=== PATIENT | female | born 1955 | race Caucasian/White ===

== ENCOUNTER 2021-12-03 21:49 | Observation (INO) ==
[2021-12-03] MEDS ORDERED: IOPAMIDOL 100 ML BOTTLE IV ONE (21:50)
--- NOTE | 2021-12-03 21:58 | Emergency Department Note ---
Abdominal Pain HPI General Chief Complaint: Abdominal Pain Stated Complaint: Abdominal pain Time Seen by Provider: 12/03/21 21:57 Source: patient Mode of arrival: ambulatory Limitations: no limitations History of Present Illness HPI Narrative: Narrative: 66-year-old female was in good health until 11 AM day of presentation when she developed a gradual onset of pain in her epigastric area. With time she developed nausea to go with that followed by vomiting. Over time,pain migrated to the right lower quadrant and she presented to the emergency department around 9:45 PM for further care. At the time presentation patient was having pain that she rated as a 9 on a 0-to-10 scale. Stated was constant. Worse with vomiting. Was primarily located in the right lower quadrant without radiation to the back. Had associated vomiting. More of a dull pain and then a sharp pain. Patient excepted antiemetic medication but refused antinausea medicine. Patient states she has had extensive vomiting after opioids in the past and is reluctant to have them unless she truly needs them. Patient states she is a type II diabetic who takes metformin twice a day and Trulicity once a week. States she is an asthmatic using multiple inhalers. Denies heart disease. States she recently had a colonoscopy that was esse ntially unremarkable. Past surgical history . Last food intake 1 PM. Last liquid; patient took a sip of water at 2230. Related Data Home Medications Medication Instructions Recorded Confirmed multivitamin 1 tab PO QDAY 10/08/19 12/04/21 omeprazole 20 mg capsule,delayed 20 mg PO QDAY cap 09/04/21 12/04/21 release Previous Rx's Medication Instructions Recorded blood sugar diagnostic (Accu-Chek #100 ea 11/20/20 Fabi Plus test strp) blood-glucose meter (Accu-Chek #1 ea 11/20/20 Fabi Plus Meter) lancets (Accu-Chek Multiclix #200 ea 11/20/20 Lancet) solifenacin 10 mg tablet (Vesicare) 10 mg PO QDAY #90 tab 04/06/21 metformin 500 mg tablet 500 mg PO BID 90 Days #180 tab 04/09/21 ropinirole 0.5 mg tablet 0.5 mg PO QHS #90 tab 04/09/21 albuterol sulfate 90 mcg/actuation 2 puff INHALATION Q6H #20.1 g 05/04/21 aerosol inhaler (Ventolin HFA) rosuvastatin 20 mg tablet 20 mg PO QDAY #30 tab 06/03/21 dulaglutide 0.75 mg/0.5 mL 0.75 mg (0.5 mL) SUBCUT QWEEK #2 ml 09/04/21 subcutaneous pen injector (Trulicity) fluticasone 500 mcg-salmeterol 50 1 inh INHALATION Q12H #60 each 09/04/21 mcg/dose blistr powdr for inhalation (Wixela Inhub) mirtazapine 15 mg tablet 15 mg PO QHS #90 tab 09/11/21 Allergies Allergy/AdvReac Type Severity Reaction Status Date / Time cat dander Allergy Unknown Sneezing Verified 12/03/21 21:51 House Dust Allergy Unknown Sneezing Verified 12/03/21 21:51 doxycycline [From Vibramycin] Allergy unknown Verified 12/03/21 21:51 Review of Systems ROS ROS Narrative: Narrative: Constitutional: Denies fever ENT ED: Denies throat pain or rhinorrhea Cardiovascular: Denies chest pain Respiratory: Denies shortness of breath or cough Gastrointestinal: Reports abdominal pain, nausea and vomiting Genitourinary: Denies dysuria Musculoskeletal: Denies back pain Integumentary: Denies rash Neurological: Denies headache Psychiatric: Denies anxiety or depression Hematological/Lymphatic: Denies easy bleeding PFSH Narrative Patient History Narrative: Narrative: Medical/Surgical/Family History All Active Problems Acid reflux (Chronic ~2008) Asthma (Chronic ~1979) Depression (Chronic ~1992) Hyperlipidemia (Chronic ~2014) Insomnia (Chronic) Migraines (Chronic ~1979) Cough variant asthma (Chronic) Major depressive disorder, 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) Chronic recurrent sinusitis (Chronic) Hay fever (Chronic) Glaucoma (Chronic) Hemorrhoids (Chronic) Vaginal atrophy (Chronic) OAB (overactive bladder) (Chronic) Diabetes mellitus with hyperglycemia (Chronic) Restless leg syndrome (Chronic) Acute appendicitis (Acute) Alcohol use (Chronic) Medical History Abnormal glucose Acid reflux (~2008) Alcohol use 2 + drinks per night Asthma (~1979) Bronchitis Bursitis of left knee Carpal tunnel syndrome Chronic recurrent sinusitis Cough variant asthma Depression (~1992) Diabetes mellitus with hyperglycemia Glaucoma Hay fever Headache Hemorrhoids Hives Hyperlipidemia (~2014) Increased frequency of urination Infectious mononucleosis Insomnia Major depressive disorder, recurrent severe without psychotic features Measles Migraines (~1979) Mild persistent asthma in adult without complication Mumps Pneumonia Pre-diabetes Restless leg syndrome Upper respiratory infection Surgical History H/O section (~1985) H/O sinus surgery (12/19/16) History of carpal tunnel surgery (~2018) History of left breast biopsy (~2005) Family History Mother Breast cancer High blood pressure Hyperlipidemia Pacemaker Father , age 73 Diabetes mellitus, type II Bladder cancer Emphysema of lung Depression Sister Diabetes mellitus, type II Grandmother Diabetes mellitus, type II Grandfather , Maternal & Paternal No problems noted. Social History Smoking Status: Never smoker Alcohol Intake Frequency: 0-2 drinks per day Substance Use: does not use Exam Narrative Narrative: Narrative: General Limitations: no limitations General appearance: Present alert and in distress Head Head: Present atraumatic and normocephalic Eye Eye: Present normal appearance; Absent scleral icterus Neck Neck: Present normal inspection and full ROM Respiratory Respiratory: Present normal lung sounds bilaterally; Absent respiratory distress Cardiovascular Cardiovascular: Present regular rate and normal rhythm Adbominal Abdominal: Present soft and tenderness (Most tender at McBurney's point. Some tenderness in the epigastric area. Some referred pain to the right upper quadrant but no Villa sign.); Absent distention, guarding, rebound or rigidity Extremities Extremities: Present normal inspection Back Back: Present normal inspection; Absent tenderness Neurological Neurological: Present alert and oriented X3 Psychiatric Psychiatric: Present normal affect and normal mood Skin Skin: Present warm (WNL) and dry Course Reevaluation(s) Reevaluation #1: Patient states that as she is no longer vomiting her pain is down to a 7 on a 0-to-10 scale. States she does not want any opioid analgesics because she does not want the side effect of vomiting. Says that if the pain becomes bad enough that she wants pain medication she will speak up. Consultations Consultation #1: Discussed with Dr. Myers the on-call surgeon. Patient will be admitted to his service. Patient will have surgery later today on December 04. He request no antibiotics at this time. Patient to be NPO. Time: 00:15 Vital Signs Vital signs: Vital Signs Temperature 99.2 F H 12/03/21 21:49 Pulse Rate 83 12/03/21 21:49 Respiratory Rate 17 12/03/21 21:49 Blood Pressure 153/103 12/03/21 21:49 Pulse Oximetry (%) 94 12/03/21 21:49 Temperature 98.7 F 12/04/21 01:29 Pulse Rate 80 12/04/21 01:29 Respiratory Rate 16 12/04/21 01:29 Blood Pressure 144/73 12/04/21 01:29 Pulse Oximetry (%) 93 12/04/21 01:29 MDM MDM Narrative Medical decision making narrative: Narrative: Elderly female presents emergency department with mid abdominal pain that is migrated to the right lower quadrant. Differential diagnosis includes acute appendicitis, kidney stone, pyelonephritis, diverticulitis, intra-abdominal problem of other etiology. White count was elevated at 16,000. Hemoglobin was 16.6 and platelet count was 187,000. Lactic acid was normal at 1.8. Electrolytes were normal. Glucose elevated at 182 in this type II diabetic patient. BUN and creatinine normal. AST elevated at 36 and ALT elevated at 49. Urinalysis showed 8 WBCs per high- powered field with no bacteria and only 1 red blood cell per high-powered field. CT scan impression was findings compatible with mild acute uncomplicated appendicitis. Hepatic steatosis and hepatomegaly. Small hiatal hernia. Discussed the case with general surgeon Dr. Myers. He wished the patient be admitted to the hospital under his service. No antibiotics at this time. Keep patient NPO. I have written for antiemetics as needed. Patient states of all the opiates she did best with Dilaudid though she does not want any at this time. I have written for a as needed order for Dilaudid for later this evening if she should need it. Should be admitted to the Hospital for further care. Lab Data Result diagrams: 12/03/21 22:24 12/03/21 22:24 Labs: Lab Results 12/03/21 12/03/21 12/03/21 Range/Units 22:24 22:24 23:11 WBC 16.2 H (4.5-11.0) K/mcL RBC 5.07 (3.59-5.38) M/mcL Hgb 16.6 H (11.2-15.7) g/dL Hct 46.5 H (34.1-44.9) % MCV 91.7 (80.0-100.0) fL MCH 32.7 (26.0-34.0) pg MCHC 35.7 (31.0-36.0) g/dL RDW 11.9 (11.5-14.5) % Plt Count 187 (140-440) K/mcL MPV 11.1 H (7.4-10.4) fL Neut % (Auto) 77.8 (38.0-78.0) % Lymph % (Auto) 15.7 (15.5-49.0) % [place] % (Auto) 4.9 (1.0-12.0) % Eos % (Auto) 1.2 (0.0-7.0) % Baso % (Auto) 0.4 (0.0-2.0) % Lymph # (Auto) 2.54 (1.50-4.80) K/mcL [place] # (Auto) 0.80 (0.10-0.90) K/mcL Eos # (Auto) 0.19 (0.00-0.70) K/mcL Baso # (Auto) 0.06 (0.00-0.30) K/mcL Absolute Neutrophils 12.60 H (1.80-8.00) K/mcL VBG Lactic Acid 1.8 (0.5-2.0) mmol/L Sodium 136 (133-145) mmol/L Potassium 4.9 (3.3-5.1) mmol/L Chloride 101 (96-108) mmol/L Carbon Dioxide 22 (22-30) mmol/L Anion Gap 13.0 (8.0-16.0) BUN 8 (8-23) mg/dL Creatinine 0.7 (0.6-1.1) mg/dL GFR Calculation 89 Glucose 182 H (70-105) mg/dL Calcium 9.4 (8.6-10.4) mg/dL Total Bilirubin 0.6 (0.1-1.0) mg/dL AST 36 H (<32) U/L ALT 49 H (<40) U/L Alkaline Phosphatase 101 (39-117) U/L Total Protein 7.3 (5.9-8.4) gm/dL Albumin 4.6 (3.2-5.2) gm/dL Globulin 2.7 (2.2-3.7) gm/dL Albumin/Globulin Ratio 1.7 (1.0-2.3) Lipase 20 (7-60) U/L Urine Color Yellow Urine Appearance Clear (Clear) Urine pH 7.5 (5.0-9.0) Ur Specific [place] 1.015 (1.000-1.035) Urine Protein Trace A (Negative) mg/dL Urine Glucose (UA) Negative (Negative) mg/dL Urine Ketones Negative (Negative) mg/dL Urine Occult Blood Negative (Negative) rebeca/mcL Urine Nitrate Negative (Negative) Urine Bilirubin Negative (Negative) mg/dL Urine Urobilinogen Normal mg/dL Ur Leukocyte Esterase Trace A (Negative) /uL Urine RBC 1 (0-3) /hpf Urine WBC 8 H (0-4) /hpf Ur Squamous Epith Cells 1 (0-4) /hpf Ur Transition Epith Cell < 1 (0-2) /hpf Urine Bacteria None (0) /hpf Ur Culture Indicated? No EKG Data EKG #1: EKG attestation: Yes I reviewed and interpreted this EKG. EKG shows normal: sinus rhythm Rate: normal Rhythm: NSR [place]/QRS: left axis deviation Voltage: normal ST segment elevation in: None ST segment depression in: None QRS morphology: Present normal Interpretation: other (Abnormal EKG. Left axis deviation.) Discharge Plan Patient/Caregiver Discharge Instructions Pt seen by SALON DESIGNER/PA only: No Clinical Impression: Acute appendicitis Qualifiers: Acute appendicitis type: unspecified acute appendicitis type Qualified Code(s): K35.80 - Unspecified acute appendicitis Patient Disposition: Xfer As Inpt ([facility]) Condition: Serious Discharge Date/Time: 12/04/21 01:25
[2021-12-03] MEDS ORDERED: ONDANSETRON 4 MG/2 ML VIAL IV ONE (22:02)
[2021-12-03] MEDS ORDERED: 0.9 % SODIUM CHLORIDE 1,000 ML IV ONE (22:02)
[2021-12-03 23:37] LABS: Basophils # (Auto) 0.06 K/mcL (0.00-0.30); Basophils % (Auto) 0.4 % (0.0-2.0); Eosinophils # (Auto) 0.19 K/mcL (0.00-0.70); Eosinophils % (Auto) 1.2 % (0.0-7.0); Hematocrit 46.5 % (34.1-44.9); Hemoglobin 16.6 g/dL (11.2-15.7); Lymphocytes # (Auto) 2.54 K/mcL (1.50-4.80); Lymphocytes % (Auto) 15.7 % (15.5-49.0); Mean Cell Volume 91.7 fL (80.0-100.0); Mean Corpuscular HGB Conc 35.7 g/dL (31.0-36.0); Mean Platelet Volume 11.1 fL (7.4-10.4); Monocytes % (Auto) 4.9 % (1.0-12.0); Neutrophils % (Auto) 77.8 % (38.0-78.0); Platelet Count 187 K/mcL (140-440); RBC 5.07 M/mcL (3.59-5.38); Red Cell Distribution Width 11.9 % (11.5-14.5); WBC 16.2 K/mcL (4.5-11.0)
[2021-12-03 23:47] LABS: Appearance,Urine Clear (Clear); Bilirubin,Urine Negative (Negative); Color,Urine Yellow; Culture Indicated,Urine No; Glucose,Urine (UA) Negative (Negative); Ketones,Urine Negative (Negative); Leukocyte Esterase,Urine Trace /uL (Negative); Nitrate,Urine Negative (Negative); PH,Urine 7.5 (5.0-9.0); Protein,Urine Trace mg/dL (Negative); Specific Gravity,Urine 1.015 (1.000-1.035); Urine Blood Negative ery/mcL (Negative); Urine RBC 1 /hpf (0-3); Urine Squamous Epithelial Cell 1 /hpf (0-4); Urine Transitional Epi Cells < 1 /hpf (0-2); Urine WBC 8 /hpf (0-4); Urobilinogen,Urine Normal
[2021-12-03 23:59] LABS: ALT/SGPT 49 U/L (<40); AST/SGOT 36 U/L (<32); Albumin 4.6 gm/dL (3.2-5.2); Albumin/Globulin Ratio 1.7 (1.0-2.3); Alkaline Phosphatase 101 U/L (39-117); Bilirubin,Total 0.6 mg/dL (0.1-1.0); Blood Urea Nitrogen 8 mg/dL (8-23); Calcium 9.4 mg/dL (8.6-10.4); Carbon Dioxide 22 mmol/L (22-30); Chloride 101 mmol/L (96-108); Globulin 2.7 gm/dL (2.2-3.7); Glomerular Filtration Rate 89; Glucose 182 mg/dL (70-105)
[2021-12-04] MEDS ORDERED: ONDANSETRON 4 MG/2 ML VIAL IV PRN ×2 (00:45→06:54)
[2021-12-04] MEDS ORDERED: HYDROmorphone 0.5 MG/0.5 ML SYRINGE IV PRN ×2 (00:45→06:54)
[2021-12-04] MEDS: 0.9 % SODIUM CHLORIDE 1,000 ML IV SCH ×2 (01:37→07:23)
--- NOTE | 2021-12-04 04:20 | Cat Scan Report ---
CLINICAL INFORMATION: Right lower quadrant pain with vomiting COMPARISON: None. TECHNIQUE: Following enteric contrast, 80 cc of Isovue-370 were injected intravenously, and 60 seconds later, 0.625 mm helical slices were obtained from the mid heart through the subtrochanteric regions. Following reconstruction, 2.5 mm sagittal, coronal and axial reformatted images were processed and reviewed at bone, lung and soft tissue windows. Five minutes later, 0.625 mm helical slices were obtained from the mid heart through the kidneys and viewed at soft tissue windows.The exam was performed using radiation dose optimization techniques including, but not limited to, automated exposure control, adjustment of the mA and/or kV according to patient size and use of iterative reconstruction technique. FINDINGS: The lung bases show subsegmental atelectasis. There are no effusions. The visualized heart is grossly normal. Moderate hiatal hernia noted. Abdominal images show moderate hepatomegaly with a vertical dimension of the liver 18 cm. Severe diffuse fatty change noted. A 14 mm region increased attenuation in the right hepatic lobe on image 77 is likely an area of focal fat sparing or small benign hemangioma. Mild enhancement in the fausto hepatis also likely represents focal fat sparing. The gallbladder and bile ducts, liver, adrenal glands, spleen, pancreas and aorta, including aortic branches, are normal in size, configuration and attenuation without focal lesion. Scattered simple cysts seen in both kidneys range up to 15 mm mid right kidney. No significant renal lesion. IVC is normal. Retroaortic left renal vein appreciated There is no free air, free fluid or adenopathy. Pelvic images show normal urinary bladder. Uterus and both ovaries are normal in size, configuration and attenuation for age. The appendix is mildly dilated-11 mm with wall thickening and enhancement. There is inflammation in the periappendiceal fat. The appendix is located in the inferior pericecal region. Sigmoid diverticulosis appreciated, but no evidence of diverticulitis. The remainder of the large bowel, small bowel and stomach are normal. Bone windows show no osseous abnormality IMPRESSION: Simple appendicitis. The appendix is located in the inferior pericecal region. Moderate hepatomegaly with severe fatty change in the liver. 14 mm enhancing lesion inferior right hepatic lobe is almost certainly focal fat sparing or a small benign hemangioma. Suggest ultrasound in 3-6 months to ensure stability Sigmoid diverticulosis, but no evidence of diverticulitis. Moderate hiatal hernia Interpreted and Authenticated by: Nas Brenner 12/04/21
--- NOTE | 2021-12-04 06:13 | General Surg History&Physical ---
HPI History of Present Illness Patient information: Note initiated : 12/04/21 at 6:10 am Service Date, if different from initiated Date: 12/04/2021 Patient: Saloni Galloway 66 y/o F admitted on 12/04/21 for Abdominal pain. Chief Complaint: [] Chief complaint: Abdominal pain History of present illness: Ms. Galloway is a 66 year old F who started having vague periumbilical abdominal pain yesterday around 11:00. The pain gradually progressed until it localized into the right lower quadrant. She denies any similar sort of pain like this in the past, she denies any nausea vomiting fevers or chills. The pain got so intense that she eventually went into the emergency room where work- up was significant for an elevated white blood cell count and a CT scan which showed acute appendicitis without evidence of perforation. She denies any travel, sick contacts or any significant past medical history. 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) Chronic recurrent sinusitis (Chronic) Hay fever (Chronic) Glaucoma (Chronic) Hemorrhoids (Chronic) Vaginal atrophy (Chronic) OAB (overactive bladder) (Chronic) Diabetes mellitus with hyperglycemia (Chronic) Restless leg syndrome (Chronic) Acute appendicitis (Acute) Alcohol use (Chronic) Medical History Abnormal glucose Acid reflux (~2008) Alcohol use 2 + drinks per night Asthma (~1979) Bronchitis Bursitis of left knee Carpal tunnel syndrome Chronic recurrent sinusitis Cough variant asthma Depression (~1992) Diabetes mellitus with hyperglycemia Glaucoma Hay fever Headache Hemorrhoids Hives Hyperlipidemia (~2014) Increased frequency of urination Infectious mononucleosis Insomnia Major depressive disorder, recurrent severe without psychotic features Measles Migraines (~1979) Mild persistent asthma in adult without complication Mumps Pneumonia Pre-diabetes Restless leg syndrome Upper respiratory infection Surgical History H/O section (~1985) H/O sinus surgery (12/19/16) History of carpal tunnel surgery (~2018) History of left breast biopsy (~2005) Family History Mother Breast cancer High blood pressure Hyperlipidemia Pacemaker Father , age 73 Diabetes mellitus, type II Bladder cancer Emphysema of lung Depression Sister Diabetes mellitus, type II Grandmother Diabetes mellitus, type II Grandfather , Maternal & Paternal No problems noted. Social History marital status: smoking status: Never smoker alcohol intake frequency: 0-2 drinks per day substance use type: does not use MEDS/ALLERGIES Home Medications and Allergies Home Medications Medication Instructions Recorded Confirmed Type multivitamin 1 tab PO QDAY 10/08/19 12/04/21 History blood sugar diagnostic (Accu-Chek #100 ea 11/20/20 12/04/21 Rx Fabi Plus test strp) blood-glucose meter (Accu-Chek #1 ea 11/20/20 12/04/21 Rx Fabi Plus Meter) lancets (Accu-Chek Multiclix #200 ea 11/20/20 12/04/21 Rx Lancet) solifenacin 10 mg tablet (Vesicare) 10 mg PO QDAY #90 tab 04/06/21 12/04/21 Rx metformin 500 mg tablet 500 mg PO BID 90 Days #180 tab 04/09/21 12/04/21 Rx ropinirole 0.5 mg tablet 0.5 mg PO QHS #90 tab 04/09/21 12/04/21 Rx albuterol sulfate 90 mcg/actuation 2 puff INHALATION Q6H #20.1 g 05/04/2112/04 Rx aerosol inhaler (Ventolin HFA) rosuvastatin 20 mg tablet 20 mg PO QDAY #30 tab 06/03/21 12/04/21 Rx dulaglutide 0.75 mg/0.5 mL 0.75 mg (0.5 mL) SUBCUT QWEEK #2 ml 09/04/21 12/04/21 Rx subcutaneous pen injector (Trulicity) fluticasone 500 mcg-salmeterol 50 1 inh INHALATION Q12H #60 each 09/04/21 12/04/21 Rx mcg/dose blistr powdr for inhalation (Wixela Inhub) omeprazole 20 mg capsule,delayed 20 mg PO QDAY cap 09/04/21 12/04/21 History release mirtazapine 15 mg tablet 15 mg PO QHS #90 tab 09/11/21 12/04/21 Rx Allergies Allergy/AdvReac Type Severity Reaction Status Date / Time cat dander Allergy Unknown Sneezing Verified 12/03/21 21:51 House Dust Allergy Unknown Sneezing Verified 12/03/21 21:51 doxycycline [From Vibramycin] Allergy unknown Verified 12/03/21 21:51 Physical Examination Vital Signs Vital signs: Temp Pulse Resp BP Pulse Ox 97.6 F 80 16 139/79 93 12/04/21 04:00 12/04/21 01:29 12/04/21 04:00 12/04/21 04:00 12/04/21 04:00 General physical appearance General physical exam: well developed, well nourished and no distress Eyes Eye exam: PERRL and normal ocular movement ENT ENT exam: normal pinna, normal nares, normal mucosa, no hearing loss and no congestion Head Head exam IM: Present atraumatic and normocephalic Neck Neck exam: no masses, no bruits, trachea midline, no lymphadenopathy and no venous distension Cardiovascular Cardiovascular exam IM: Present normal rate and rhythm Respiratory Respiratory exam: normal expansion, normal respiratory effort, clear to percussion and clear to auscultation Abdomen Abdomen: Present soft, non tender and bowel sounds Hernia: Present none Genitourinary Genitourinary (Female): Present normal external genitalia Rectum Rectum: Present normal sphincter tone, no hemorrhoids, no tenderness, no masses and no bleeding Integumentary Integumentary: Present no rash, no growths and no abnormal pigmentation Neurologic Neurologic: Present normal coordination and normal sensation Musculoskeletal Musculoskeletal: Present normal gait and normal posture Psychiatric Psychiatric: Present oriented to time, oriented to person, oriented to place, speech is normal and memory intact Results Labs Result diagrams: 12/03/21 22:24 12/03/21 22:24 Labs: Abnormal lab results 12/03/21 12/03/21 12/03/21 Range/Units 22:24 22:24 23:11 WBC 16.2 H (4.5-11.0) K/mcL Hgb 16.6 H (11.2-15.7) g/dL Hct 46.5 H (34.1-44.9) % MPV 11.1 H (7.4-10.4) fL Absolute Neutrophils 12.60 H (1.80-8.00) K/mcL Glucose 182 H (70-105) mg/dL AST 36 H (<32) U/L ALT 49 H (<40) U/L Urine Protein Trace A (Negative) mg/dL Ur Leukocyte Esterase Trace A (Negative) /uL Urine WBC 8 H (0-4) /hpf Diabetes panel 12/03/21 Range/Units 22:24 Sodium 136 (133-145) mmol/L Potassium 4.9 (3.3-5.1) mmol/L Chloride 101 (96-108) mmol/L Carbon Dioxide 22 (22-30) mmol/L BUN 8 (8-23) mg/dL Creatinine 0.7 (0.6-1.1) mg/dL Glucose 182 H (70-105) mg/dL Calcium 9.4 (8.6-10.4) mg/dL AST 36 H (<32) U/L ALT 49 H (<40) U/L Alkaline Phosphatase 101 (39-117) U/L Total Protein 7.3 (5.9-8.4) gm/dL Albumin 4.6 (3.2-5.2) gm/dL Calcium panel 12/03/21 Range/Units 22:24 Calcium 9.4 (8.6-10.4) mg/dL Albumin 4.6 (3.2-5.2) gm/dL Pituitary panel 12/03/21 Range/Units 22:24 Sodium 136 (133-145) mmol/L Potassium 4.9 (3.3-5.1) mmol/L Chloride 101 (96-108) mmol/L Carbon Dioxide 22 (22-30) mmol/L BUN 8 (8-23) mg/dL Creatinine 0.7 (0.6-1.1) mg/dL Glucose 182 H (70-105) mg/dL Calcium 9.4 (8.6-10.4) mg/dL Adrenal panel 12/03/21 Range/Units 22:24 Sodium 136 (133-145) mmol/L Potassium 4.9 (3.3-5.1) mmol/L Chloride 101 (96-108) mmol/L Carbon Dioxide 22 (22-30) mmol/L BUN 8 (8-23) mg/dL Creatinine 0.7 (0.6-1.1) mg/dL Glucose 182 H (70-105) mg/dL Calcium 9.4 (8.6-10.4) mg/dL Total Bilirubin 0.6 (0.1-1.0) mg/dL AST 36 H (<32) U/L ALT 49 H (<40) U/L Alkaline Phosphatase 101 (39-117) U/L Total Protein 7.3 (5.9-8.4) gm/dL Albumin 4.6 (3.2-5.2) gm/dL All other labs normal. Imaging CT scan - abdomen: image reviewed A/P Assessment and plan (1) Acute appendicitis: Plan: This is a pleasant 66-year-old female who presents with signs symptoms most consistent with acute appendicitis. Risk, benefits, alternatives to conservative management versus surgical intervention discussed with her at length. She verbalizes understanding, all of her questions are answered and she desires to continue with operative intervention. Details of the procedure and what to expect. Post also discussed with her at length. Plan: Laparoscopic appendectomy. Status: Acute Qualifiers: Acute appendicitis type: unspecified acute appendicitis type Qualified Code(s): K35.80 - Unspecified acute appendicitis Time Spent With Patient Time: Total time spent is greater than 50% in coordination of care (as documented) at patient's floor/unit and/or counseling patient:
[2021-12-04] MEDS ORDERED: ceFAZolin 2 GM in DEXTROSE 5% IN WATER 50 ML IV SCH (06:15)
[2021-12-04] MEDS ORDERED: KETAMINE 50 MG/ML Syringe (ANEST) IV ONE (06:30)
[2021-12-04] MEDS ORDERED: PROMETHAZINE 25 MG/ML VIAL ONE (06:30)
[2021-12-04] MEDS ORDERED: DEXAMETHASONE 10 MG/ML VIAL ONE (06:30)
[2021-12-04] MEDS ORDERED: SCOPOLAMINE 1 PATCH PATCH TOPICAL PRN (06:30)
[2021-12-04] MEDS ORDERED: IPRATROPIUM/ALBUTEROL 3 ML AMPUL.NEB NEB PRN ×2 (06:30→06:54)
[2021-12-04] MEDS ORDERED: FAMOTIDINE/PF 20 MG/2 ML VIAL IV ONE (06:30)
[2021-12-04] MEDS ORDERED: ONDANSETRON 4 MG/2 ML VIAL ONE (06:30)
[2021-12-04] MEDS ORDERED: PHENYLephrine 1 MG/10 ML SYRINGE (ANEST) ONE (06:30)
[2021-12-04] MEDS ORDERED: HYDROmorphone 1 MG/ML SYRINGE ONE (06:30)
[2021-12-04] MEDS ORDERED: ROCURONIUM 10 MG/ML ML IV ONE (06:30)
[2021-12-04] MEDS ORDERED: MAGNESIUM SULFATE 2 GM/50 ML BAG IV ONE (06:30)
[2021-12-04] MEDS ORDERED: MIDAZOLAM 2 MG/2 ML VIAL ONE (06:30)
[2021-12-04] MEDS ORDERED: fentaNYL 100 MCG/2 ML VIAL IV ONE (06:30)
[2021-12-04] MEDS ORDERED: GLYCOPYRROLATE 0.2 MG/ML VIAL IV ONE (06:30)
[2021-12-04] MEDS ORDERED: LIDOCAINE HCL/PF 100 MG/5 ML SYRINGE IV ONE (06:30)
[2021-12-04] MEDS ORDERED: PROPOFOL 200 MG/20 ML VIAL IV ONE (06:30)
[2021-12-04] MEDS ORDERED: SUCCINYLCHOLINE 20 MG/ML ML IV ONE (06:30)
[2021-12-04] MEDS ORDERED: METOCLOPRAMIDE 10 MG/2 ML VIAL IV PRN (06:54)
[2021-12-04] MEDS ORDERED: METHOCARBAMOL 1,000 MG/10 ML VIAL IV PRN (06:54)
[2021-12-04] MEDS ORDERED: METOPROLOL TARTRATE 5 MG/5 ML VIAL IV PRN (06:54)
[2021-12-04] MEDS ORDERED: LABETALOL 5 MG/ML ML IV PRN (06:54)
[2021-12-04] MEDS ORDERED: FLUMAZENIL 0.1 MG/ML ML IV PRN (06:54)
[2021-12-04] MEDS ORDERED: ACETAMINOPHEN 1,000 MG/100 ML BAG IV ONE (06:54)
[2021-12-04] MEDS ORDERED: fentaNYL 100 MCG/2 ML VIAL IV PRN (06:54)
[2021-12-04] MEDS ORDERED: LIDOCAINE W/EPI 1% 20 ML, BUPIVACAINE 0.5% 20 ML IJ ONE (06:54)
[2021-12-04] MEDS ORDERED: NALOXONE HCL 0.4 MG/ML VIAL IV PRN (06:54)
[2021-12-04] MEDS ORDERED: LACTATED RINGERS 250 ML IV PRN (06:54)
[2021-12-04] MEDS ORDERED: LACTATED RINGERS 1,000 ML IV SCH (07:00)
--- NOTE | 2021-12-04 07:08 | Operative Note ---
Brief Operative Note Date of procedure: 12/04/21 Pre-op diagnosis: Acute appendicitis Post-op diagnosis: same Procedure: Laparoscopic appendectomy Grafts/Implants: No Anesthesia: GETA Findings: Consistent with acute appendicitis Complications: none Surgeon: Fito Myers Estimated blood loss (cc): 10 Specimens Removed/Pathology: other (Appendix) Condition: stable Disposition: PACU Operative Note Operative Note: After risk benefits and alternatives to the procedure were discussed with the patient at length she verbalized understanding and desire to continue with the procedure. Patient was taken main operating room placed supine operative table. General anesthesia was induced over endotracheal tube. Patient's prepped and draped in standard sterile surgical fashion. Surgical timeout was taken to verify patient and procedure being performed. 1% lidocaine half percent Marcaine was used for local anesthesia. Left side incision was made and the abdominal cavity was entered under direct vision using a 5 mm Optiview trocar. Abdominal cavity was insufflated with carbon dioxide and visual inspection revealed no injuries. 12 mm supraumbilical and a 5 mm left lower quadrant trochars were then placed under direct vision. Attention was turned to the right lower quadrant where acutely inflamed appendix was identified. The appendix was mobilized into the field of operation with blunt dissection, once this was done the appendix was mobile and the retroappendiceal window was created with blunt dissection and the appendix was transected at its base using Endo KENYA stapler. The remainder of the mesoappendix was then transected using a vessel sealing device. Once appendix was fully transected and dissected free it was placed in Endo Catch bag removed through the upper midline incision and passed off the field for surgical pathology. Attention was turned back to the staple lines which were inspected for hemostasis. Staple line and vessel sealing lines were hemostatic. The upper midline fascial defect was then reapproximated with interrupted 0 Vicryl suture. The CO2 and trochars were removed under direct vision. Trocar sites were inspected for hemostasis. The skin incisions were closed with interrupted 4 Monocryl sutures and skin glue dressings were applied. Patient was then awakened from general anesthesia transferred postanesthesia care unit awake alert in good condition.
--- NOTE | 2021-12-04 07:11 | Discharge Summary ---
Discharge Provider Provider IMPORTANT FOLLOW-UP INFORMATION FOR PCP: Patient information: Note initiated : 12/04/21 at 7:11 am Service Date, if different from initiated Date: [] Patient: Saloni Galloway 66 y/o F admitted on 12/04/21 for Abdominal pain. Chief Complaint: [] Date of admission: 12/04/21 01:22 Discharge date: 12/04/21 Primary care physician: Carlos Chua MD Consults: 12/04/21 Consult to Physician [CONS] Stat Comment: Consulting Provider: Fito Myers Reason For Exam: Physician to Consult COURSE Hospital Course Hospital course: Patient is admitted for acute appendicitis, she underwent a laparoscopic appendectomy. Discharge diagnosis: Status post appendectomy Time Spent with Patient Time attestation: Total time spent providing and/or coordinating discharge services: Time spent: Less than 30 minutes Physical Examination Vital Signs Vital signs: Temp Pulse Resp BP Pulse Ox 97.6 F 80 16 139/79 93 12/04/21 04:00 12/04/21 01:29 12/04/21 04:00 12/04/21 04:00 12/04/21 04:00 Discharge Plan Patient/Caregiver Discharge Instructions Activity: increase activity as tolerated Diet: Regular Diet Activity Restrictions/Additional Instructions: Resume normal activity as tolerated, no weightlifting restrictions. May resume shower starting today. Follow-up with me in 2 to 3 weeks. Prescriptions: New ibuprofen 800 mg tablet 800 mg PO TID PRN (Reason: pain) Qty: 90 0RF acetaminophen [Tylenol 8 Hour] 650 mg tablet extended release 650 mg PO Q8H PRN (Reason: pain) Qty: 90 0RF Continued solifenacin [Vesicare] 10 mg tablet 10 mg PO QDAY Qty: 90 11RF ropinirole 0.5 mg tablet 0.5 mg PO QHS Qty: 90 3RF Rx Instructions: administer 1-3 hours before bedtime metformin 500 mg tablet 500 mg PO BID 90 Days Qty: 180 4RF Rx Instructions: Take with breakfast and dinner albuterol sulfate [Ventolin HFA] 90 mcg/actuation HFA aerosol inhaler 2 puff INHALATION Q6H Qty: 20.1 4RF rosuvastatin 20 mg tablet 20 mg PO QDAY Qty: 30 7RF Rx Instructions: 1 p.o. daily mirtazapine 15 mg tablet 15 mg PO QHS Qty: 90 1RF multivitamin Tablet 1 tab PO QDAY 0RF (DME) blood-glucose meter [Accu-Chek Fabi Plus Meter] Misc See Rx Instructions .Route Qty: 1 0RF Rx Instructions: As directed test blood sugars 3 times daily (DME) Accu-Chek Fabi Plus test strp Strip See Rx Instructions .Route Qty: 100 4RF Rx Instructions: As directed test blood sugars 3 times daily (DME) lancets [Accu-Chek Multiclix Lancet] Misc See Rx Instructions .Route Qty: 200 4RF Rx Instructions: As directed test blood sugars 3 times daily omeprazole 20 mg capsule,delayed release(DR/EC) 20 mg PO QDAY 0RF Trulicity 0.75 mg/0.5 mL pen injector 0.75 mg subcut QWEEK Qty: 2 2RF fluticasone propion-salmeterol [Wixela Inhub] 500-50 mcg/dose blister with device 1 inh INHALATION Q12H Qty: 60 4RF Follow Up Plan Follow up with: Fito Myers MD [Physician] - Carlos Chua MD [Primary Care Provider] - Patient Disposition: Home, Self-Care Prognosis: Serious Discharge Orders: Discharge Order (Routine); Ordered 12/04/21 Ordered By: Fito Myers Pending Pending Pending: Resuscitation Status Resuscitate (Full Code) Diet NPO Diet (NOW) Start TueDec 04 0047 Sodium Chloride (Sodium Chloride 0.9%) 1,000 mls @ 100 mls/hr IV .Q10H GATO Last Admin: 12/04/21 01:37 Dose: 100 mls/hr Documented by: ITA Cefazolin Sodium 2 gm/ (Dextrose) 50 mls @ 100 mls/hr IV PREOP GATO; Protocol Stop: 12/04/21 09:00 Last Infusion: 12/04/21 06:53 Dose: 0 mls/hr Documented by: Admin: 12/04/21 06:23 Dose: 100 mls/hr Documented by: CARLINE Shift Summary 12/04/21 04:11 Shift Summary by Leonidas Patrick History of Present Illness HPI Narrative: Narrative: 66-year-old female was in good health until 11 AM day of presentation when she developed a gradual onset of pain in her epigastric area. With time she developed nausea to go with that followed by vomiting. Over time,pain migrated to the right lower quadrant and she presented to the emergency department around 9:45 PM for further care. At the time presentation patient was having pain that she rated as a 9 on a 0-to-10 scale. Stated was constant. Worse with vomiting. Was primarily located in the right lower quadrant without radiation to the back. Had associated vomiting. More of a dull pain and then a sharp pain. Patient accepted antiemetic medication but refused pain medicine. Patient states she has had extensive vomiting after opioids in the past and is reluctant to have them unless she truly needs them. Patient states she is a type II diabetic who takes metformin twice a day and Trulicity once a week. States she is an asthmatic using multiple inhalers. Denies heart disease. States she recently had a colonoscopy that was essentially unremarkable. Past surgical history . Last food intake 1 PM. Last liquid; patient took a sip of water at 2230. Primary Diagnosis: Appendicitis Registration Status:MED/Surg OBS. Day of Hospitalization (admit date=day zero):0 Date of Surgery (if applicable):12/04 Pertinent Medical Dx/Issue(s):HX Asthma Interventions (wounds, diuresis, etc):Skin intact. Vital Signs with Trends:Afebrile, 144/73, HR-80's O2, liter flow/saturations:R/A-93% Vent/Bipap/Cpap: Meds (abo, pain, BP, etc):710 frontal H/A, declined dilaudid or other pain meds Lab/Rad (abnormal results):AST=36,ALT=47, WBC 16.2, Lactic Acid-1.8, K+ 4.9 Neuro/Mental Status: A/O x4, pleasant Cardiac Rhythm, Alarm Settings: N/A Urinary Elimination (Jj out in 24H?; u.o. > 30mL/hr?): Voids Date of last BM:12/03 Lines/Tubes: Left AC NS @ 100mls/hr. Activity: up w/standby assist Recommendations/questions for MD: Expected date of discharge:TBD Discharge Plan (needs, disposition, etc): Home w/ Deric. Very pleasant lady appreciative of care. Initialized on 12/04/21 04:11 - END OF NOTE
--- NOTE | 2021-12-07 13:31 | EKG ---
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 Measurements Intervals [place] Rate: 79 P: 48 NV: 170 QRS: -2 QRSD: 92 T: 15 QT: 431 QTc: 495 Interpretive Statements Sinus rhythm Probable left atrial enlargement Electronically Signed On 12-07-2021 13:30:45 PDT by Nas Barcenas M.D. /[id number]/[id number]
== END 2021-12-04 12:20 | disposition home or self-care (01) ==
LOC: ED 21:49 → MEDSUR 21:49
PROVIDERS: ADMIT Surgery; ATTEND Surgery